=== PATIENT | female | born 1940 | race Caucasian/White ===

== ENCOUNTER 2023-02-11 19:56 | Emergency (ER) | payer OTHER ==
[~2023-02-11] VITALS: Ht 165.1 cm; Wt 110.0 kg
[2023-02-12] MEDS ORDERED: VALA1TAB34 PO (00:52)
[2023-02-12] MEDS ORDERED: DIPH25TA54 PO (00:52)
[2023-02-12 03:45] VITALS: BP 106/53
== END 2023-02-12 05:03 | disposition home or self-care (01) ==
LOC: EDBD 19:56 → ER 19:56
DX: B02.9 Zoster without complications (principal); E11.9 Type 2 diabetes mellitus without complications; I10 Essential (primary) hypertension; Z86.73 Personal history of transient ischemic attack (TIA), and cerebral infarction without residual deficits